=== PATIENT | male | born 1990 | race Caucasian/White ===

== ENCOUNTER 2024-04-09 21:40 | Emergency (ER) | payer BC, SELFPAY ==
[2024-04-09 21:43] VITALS: BP 128/96
--- NOTE | 2024-04-09 22:31 | ED.GENMED ---
History of Present Illness
General
Chief Complaint: Skin Problem
Source: patient
Exam Limitations: none
Time Seen by Provider: 04/09/24 22:13
Nursing documentation reviewed up to this point in time: agreed with
Travel History
Have you had any contact with someone who has COVID-19?: No
Do you have any symptoms of coronavirus? Fever > 100 degrees, chills, cough, shortness of breath, sore throat, loss of taste or smell, muscle aches, or headache?: No
History of Present Illness
History of Present Illness:
This is a 34-year-old with history of sepsis syndrome 2018; no definitive cause. No history of diabetes nor immunocompromise state.
Had tattoos placed right wrist, right upper arm yesterday and while working out at the gym today noticed local redness and pain to right dorsal wrist. Has had multiple tattoos in the past without adverse effects and no similar redness to tattoo of
right upper arm.
He does admit to mild aches tonight, subjective fever but denies shaking chills. No other associated symptoms.
Has not taken anything for symptoms.
Past History
Past History
ED Past Medical History: Other (Sepsis with hospitalization 2018)
ED Past Surgical History: None
Social History
Tobacco: Non-smoker
Employment: Employed
Family History
Family History: Other (Noncontributory)
Phy Exam
Physical Exam
Physical Exam:
GENERAL: Alert , in no apparent distress
EYE: anicteric
NECK: Supple, nontender, no meningismus, no significant adenopathy.
ENT: oral mucosa is moist. No rhinorrhea.
CARDIAC: Regular rate and rhythm. no murmur.
LUNGS: Clear breath sounds bilaterally, no acute respiratory distress, no wheezes/rales/rhonchi
ABDOMEN: Soft, nondistended, without focal tenderness
NEUROLOGICAL: Alert and oriented x3, no focal neuro deficits. Gait is tejada and steady.
SKIN: Warm and dry, normal color, good turgor. There is a fresh multicolored tattoo right dorsal proximal wrist as well as similarly multicolored tattoo right lateral upper arm. There is very minimal erythema noted right dorsal wrist that is
minimally warm to touch. There is no abscess formation, no lymphangitis, no axillary adenopathy. There is no redness nor soft tissue swelling of right upper arm tattoo.
MUSCULOSKELETAL: No C/C/E. peripheral pulses are full and equal b/l. Minimal tenderness to palpation right dorsal proximal wrist. There is no soft tissue swelling, no joint effusion, full range of motion without difficulty nor pain.
PSYCH: Normal and appropriate interaction.
Course
Orders/Labs/Results
Orders:
Orders
04/09/24 22:28
Doxycycline [Vibramycin] 100 mg PO NOW STA
04/10/24 08:00
Bacitracin Zinc [Bacitracin Ointment] See Dose Instructions TOPICAL TID
Vital Signs
Initial and Last Documented VS:
Initial Vital Signs
Temp Pulse Resp BP Pulse Ox
98.0 F 81 18 128/96 99
04/09/24 21:43 04/09/24 21:43 04/09/24 21:43 04/09/24 21:43 04/09/24 21:43
Last Documented Vital Signs
Temp Pulse Resp BP Pulse Ox
98.0 F 81 18 128/96 99
04/09/24 21:43 04/09/24 21:43 04/09/24 21:43 04/09/24 21:43 04/09/24 21:43
MDM/Problems Addressed
Differential Diagnosis Includes:
Concern for early cellulitis.
Local tattoo dye allergy is also a consideration but less likely due to no history of similar erythematous reactions with previous tattoos and accompanying similar tattoo right upper arm is asymptomatic.
Remote history of sepsis from unknown origin but no history of recurrent episodes of bacteremia, no history of immunocompromise nor history of diabetes.
Overall well in appearance, afebrile.
At this point no indication for laboratory studies.
Recommend topical antibiotic ointment such as bacitracin/Neosporin and will treat with a course of doxycycline for potential early cellulitis.
Patient requested prescription for Diflucan for potential yeast infection if this occurs.
Prompt follow-up with PCP for recheck.
Return precautions discussed.
*Pulse Oximetry
Patient hypoxic: no
*Critical Care Note
Total Time (30-74mins, 75-104mins- exclusive of procedures): Not Applicable
ED Attending Note
-
Portions of this chart may have been created with voice recognition software.� Occasional wrong word or��sound alike� substitutions may have occurred due to the inherent limitations of voice recognition software.
Discharge Plan
Departure
Patient Disposition: Home (Routine Discharge)
Date of Disposition: 04/09/24
Time of Disposition: 22:44
Patient with high blood pressure during this ER visit?: No
Condition: Good
Discharge Problem:
cellulitis right dorsal wrist
Instructions: Cellulitis (Skin Infection), Adult ED
Prescriptions:
New
doxycycline monohydrate 100 mg capsule
100 mg PO BID Qty: 20 0RF
fluconazole 150 mg tablet
150 mg PO ONCE Qty: 1 0RF
Activity Restrictions/Additional Instructions:
Apply antibiotic ointment to tattoo 1-2 times/day.
Take tylenol vs ibuprofen as needed for pain.
Follow up with your family doctor for recheck as needed.
It may take 1-2 days before improvement seen in redness and inflammation. If redness worsens despite 48 hours of antibiotic or if you develop a high fever, prompt return to the ER for reexamination.
Interventions
Interventions:
*Risk Screen - Suicide Last Done: 04/09/24 21:43
*General Assessment Last Done: 04/09/24 21:43
*Neglect/Abuse Screening Last Done: 04/09/24 21:43
Discharge Date and Time
Print Language: SYRIAC
[2024-04-09] MEDS: VIBRAMYCIN 100 MG PO (22:37)
== END 2024-04-09 22:58 | disposition home or self-care (01) ==
LOC: EMR 21:40
PROVIDERS: EMERGENCY PHYSICIAN Emergency Medicine
DX: L03.113 Cellulitis of right upper limb (principal); R50.9 Fever, unspecified
CPT/HCPCS: 99283

== ENCOUNTER 2024-10-03 17:52 | Emergency (ER) | payer BC, SELFPAY ==
[2024-10-03 17:53] VITALS: BP 138/87
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
[2024-10-03 18:57] LABS: % Basophils 0.8 % (0-2); % Immature Granulocytes 0.2 % (0-0.5); % Lymphocytes 40.3 % (20.5-51.1); % Neutrophils 45.7 % (42.2-75.2); Absolute Eosinophils 0.3 10^3/uL (0-0.7); Absolute Lymphocytes 2.1 10^3/uL (1.2-3.4); Absolute Monocytes 0.4 10^3/uL (0.1-0.6); Absolute Neutrophils 2.4 10^3/uL (1.4-6.5); Hematocrit 36.4 % (39.0-52.0); Hemoglobin 12.6 g/dL (13.0-18.0); Mean Corp Hgb Conc. 34.6 g/dL (33.0-37.0); Mean Corpuscular Hgb 32.7 pg (27.0-31.0); Mean Corpuscular Volume 94.5 fL (80.0-94.0); Mean Platelet Volume 9.4 fL (7.4-10.4); Nucleated Red Blood Cells % 0 % (-); Platelet Count 212 10^3/uL (130-400); Red Blood Cell Count 3.85 10^6/uL (4.70-6.10); Red Cell Dist. Width 11.9 % (11.5-14.5); White Blood Cell Count 5.2 10^3/uL (4.8-10.8)
[2024-10-03 19:00] VITALS: BP 124/63
[2024-10-03 19:08] LABS: ALT (SGPT) 27 U/L (0-50); AST (SGOT) 31 U/L (17-59); Albumin 4.4 g/dl (3.5-5.0); Alkaline Phosphatase 30 U/L (38-126); Blood Urea Nitrogen 23 mg/dl (9-20); Calcium 9.5 mg/dl (8.4-10.2); Carbon Dioxide 28 mmol/L (22-30); Chloride 100 mmol/L (98-107); Glucose 91 mg/dl (70-99); Potassium 4.4 mmol/L (3.5-5.1); Sodium 139 mmol/L (135-145); Total Bilirubin 0.2 mg/dl (0.2-1.3); Total Protein 6.7 g/dl (6.3-8.2); eGFR > 60.00
[2024-10-03 19:18] LABS: Troponin I < 0.012 ng/ml
== END 2024-10-03 20:47 | disposition home or self-care (01) ==
LOC: EMR 17:52
PROVIDERS: EMERGENCY PHYSICIAN Emergency Medicine
DX: R07.89 Other chest pain (principal)
CPT/HCPCS: 99285; 71046; 80053; 84484; 85025; 93005